=== PATIENT | female | born 1960 | race Caucasian/White ===

== ENCOUNTER 2016-12-10 19:07 | Emergency (ER) | payer OTHER ==
[~2016-12-10] VITALS: Ht 162.6 cm; Wt 64.0 kg
[2016-12-10 19:10] VITALS: Ht 162.6 cm; Wt 64.0 kg
[2016-12-10] MEDS ORDERED: HYDROCODONE/APAP (5/325) TAB PO ONE (20:00)
--- NOTE | 2016-12-10 22:01 | RADRPT ---
PROCEDURE: XR Lumbar Spine. CLINICAL INDICATION: Low back pain. TECHNIQUE: AP, cone-down lateral, and lateral views of the lumbar spine were obtained. COMPARISON: None. FINDINGS: Mineralization is within normal limits. Vertebral bodies are normal in height. No fracture is iden tified. Lumbar lordosis is preserved. No vertebral subluxation is seen. The intervertebral discs are normal in height except for L4-5 which is mildly narrowed as endplate sclerosis and spondylosis. Paraspinal contours are unremarkable. RPTAT:HJJR IMPRESSION: 1. Degenerative disk narrowing, endplate sclerosis and spondylosis at L4-5. 2. Otherwise unremarkable examination. Physician Felton Date Time Electronically viewed and signed by Physician Felton on 12/10/2016 22:01 /
[2016-12-10] MEDS ORDERED: IBUP-1542 PO (22:07)
[2016-12-10] MEDS ORDERED: HYDR-906 PO (22:17)
--- NOTE | 2016-12-11 03:04 | ERA ---
ER Documentation Chief Complaint Date/Time DATE: 12/11/16 TIME: 02:58 Chief Complaint low back pain running down to right leg x 4 day HPI Patient is a 56-year-old female complaining of back pain for 5 days. Patient denies trauma. Patient denies any symptoms like this happening before. Patient was evaluated at [facility] emergency room this Thursday and x-ray was taken and was given tramadol for pain which has only mild to moderately improved said pain. Patient states there is radiation down the right leg on the lateral aspect. Patient says that movement makes the pain worse. Denies any loss of bowel or bladder control. ROS All systems reviewed and are negative except as per history of present illness. Medications Home Meds Active Scripts Hydrocodone/Acetaminophen (Gurley 5-325 Tablet) 1 Each Tablet, 1 TAB PO Q6H Y for PAIN, #7 TAB Prov:SUDHAKAR TRAVIS PA-C 12/10/16 Ibuprofen* (Motrin*) 600 Mg Tab, 600 MG PO Q6H Y for PAIN AND OR ELEVATED TEMP, #30 TAB Prov:SUDHAKAR TRAVIS PA-C 12/10/16 Allergies Allergies: Coded Allergies: No Known Allergy (Unverified , 12/10/16) PMhx/Soc Medical and Surgical Hx: pt denies Medical Hx, pt denies Surgical Hx History of Surgery: No Hx Neurological Disorder: No Hx Respiratory Disorders: No Hx Cardiac Disorders: No Hx Psychiatric Problems: No Hx Alcohol Use: No Hx Substance Use: No Hx Tobacco Use: No Smoking Status: Never smoker Physical Exam Vitals Vital Signs Date Time Temp Pulse Resp B/P Pulse Ox O2 Delivery O2 Flow Rate FiO2 12/10/16 19:10 98.3 88 20 144/83 100 Physical Exam Const: Irritable appearing 56-year-old female who cant standstill presenting with her . Head: Atraumatic Eyes: Normal Conjunctiva ENT: Normal External Ears, Nose and Mouth. Neck: Full range of motion..~ No meningismus. Resp: Clear to auscultation bilaterally Cardio: Regular rate and rhythm, no murmurs Abd: Soft, non tender, non distended. Normal bowel sounds Skin: No petechiae or rashes Back: No midline or flank tenderness. Patient had pain with straight leg raise on the right side more so than left. Patient had no pain with passive range of motion of the legs. Patient had no tenderness palpation of the back. Patient's sensation is intact bilaterally patient is neurovascularly intact bilaterally with capillary refill within normal limits. Patient's DTRs are 2+ bilaterally of the patella. Ext: No cyanosis, or edema Neur: Awake and alert Psych: Normal Mood and Affect Results 24 hrs Current Medications Medications (Trade) Dose Ordered Sig/Alethea Route PRN Reason Start Time Stop Time Status Last Admin Dose Admin Acetaminophen/ Hydrocodone Bitart (Gurley (5/325)) 1 tab ONCE ONCE PO 12/10/16 20:00 12/10/16 20:01 DC 12/10/16 19:56 Procedures/MDM Patient is a 56-year-old female presents with back pain 5 days. Was seen at the ER on Thursday and Kwadwo Pete and prescribe tramadol for pain relief. Went ahead and get a repeat x-ray here. The x-ray impression is as follows:1. Degenerative disk narrowing, endplate sclerosis and spondylosis at L4-5. 2. Otherwise unremarkable examination. At this time I will go ahead and discharge the patient with a short course of Gurley as well as referrals to ultrasound applications specialist for further workup and evaluation. I do not believe at this time patient has any substantial neurological endangerment as she is neurovascularly intact bilaterally with urinary/bowel control and reflexes intact. Departure Diagnosis: Primary Impression: Spondylosis of lumbar joint Qualified Code: M47.26 - Osteoarthritis of spine with radiculopathy, lumbar region Additional Impression: Back pain Qualified Code: M54.41 - Right-sided low back pain with right-sided sciatica, unspecified chronicity Condition: Stable Patient Instructions: Back Pain W/ Sciatica Referrals: [facility] 7 a.m.- 11 p.m. Every Day of the Week NO APPOINTMENT OR AUTHORIZATION NEEDED Additional Instructions: Return to emergency department if her symptoms develop. Follow-up with neurologist at the appointment date or sooner if possible. Follow-up with primary care provider in the next 1-3 days. Do not take ibuprofen and Gurley at the same time, although may alternate every 3-4 hours. SUDHAKAR TRAVIS PA-C Dec 11, 2016 03:04
== END 2016-12-10 22:32 | disposition home or self-care (01) ==
LOC: FTE 19:07
DX: M47.26 Other spondylosis with radiculopathy, lumbar region (principal); M54.41 Lumbago with sciatica, right side
CPT/HCPCS: 72100